=== PATIENT | male | born 1955 | race Caucasian/White ===

== ENCOUNTER 2016-03-29 09:53 | Emergency (ER) | payer OTHER ==
[2016-03-29] MEDS ORDERED: ALU/MAG/SIM 30 ML UDC ONE (10:26)
[2016-03-29] MEDS ORDERED: LIDOCAINE 2% VISC 15 ML UDC ONE (10:26)
[2016-03-29] MEDS ORDERED: KETOROLAC 30 MG/ML VIAL ONE (11:01)
== END 2016-03-29 11:54 | disposition home or self-care (01) ==
LOC: ER 10:35
DX: R07.2 Precordial pain (principal); R07.89 Other chest pain; M94.0 Chondrocostal junction syndrome [Tietze]; I10 Essential (primary) hypertension; E11.9 Type 2 diabetes mellitus without complications; I25.10 Atherosclerotic heart disease of native coronary artery without angina pectoris; Z95.5 Presence of coronary angioplasty implant and graft; I25.2 Old myocardial infarction; Z79.84 Long term (current) use of oral hypoglycemic drugs; Z79.82 Long term (current) use of aspirin; Z86.74 Personal history of sudden cardiac arrest; E78.00 Pure hypercholesterolemia, unspecified
CPT/HCPCS: 36415; 71010; 80053; 82550; 83735; 84484; 85025; 85610; 85730; 93005; 96374; 99284; J1885